=== PATIENT | male | born 1960 | race Caucasian/White ===

== ENCOUNTER 2020-11-08 21:36 | Emergency (ER) | payer MEDICAID, OTHER ==
[2020-11-08 22:57] LABS: Basophils # (auto) 0.1 10 ^3/uL (0-0.2); Basophils % (auto) 0.8 % (0.0-2.0); Eosinophils # (auto) 0.3 10 ^3/uL (0-0.8); Eosinophils % (auto) 3.6 % (0.0-7.0); Hematocrit 40.8 % (41.0-53.0); Lymphocytes # (auto) 1.9 10 ^3/uL (0.4-5.4); Lymphocytes % (auto) 21.6 % (10.0-50.0); Mean Corpuscular Hemoglobin 30.1 pg (28.0-32.0); Mean Corpuscular Hgb Conc. 34.4 g/dL (32.0-36.0); Mean Corpuscular Volume 87.6 fL (80.0-100.0); Monocytes # (auto) 0.7 10 ^3/uL (0-1.3); Monocytes % (auto) 8.1 % (0.0-12.0); Neutrophils # (auto) 5.8 10 ^3/uL (1.6-8.6); Neutrophils % (auto) 65.9 % (37.0-80.0); Platelet Count (auto) 176 10^3/uL (140-450); Red Blood Cells 4.66 10^6/uL (4.5-5.90); Red Cell Distribution Width 13.7 % (11.8-14.3); White Blood Cell 8.9 10^3/uL (4.4-10.8)
[2020-11-08 23:16] LABS: INR 1.04 (0.9-1.15); Partial Thromboplastin Time 28.4 sec (23.0-31.2)
[2020-11-08 23:18] LABS: Albumin 3.8 g/dL (3.4-5.0); Anion Gap 9 (5-15); Blood Urea Nitrogen 25 mg/dL (7-18); Calcium 8.3 mg/dL (8.5-10.1); Carbon Dioxide 24 mmol/L (21-32); Chloride 107 mmol/L (98-107); Glucose 157 mg/dL (74-106); Magnesium 2.3 mg/dL (1.6-2.6); Potassium 3.7 mmol/L (3.5-5.1); Sodium 140 mmol/L (136-145)
[2020-11-08 23:24] LABS: Alanine Aminotransferase 18 U/L (16-61); Alkaline Phosphatase 75 U/L (45-117); Aspartate Aminotransferase 7 U/L (15-37); BUN/Creatinine Ratio 23.6; Bilirubin, Total 0.4 mg/dL (0.2-1.0); GFR African American 92 mL/min; GFR Non-African American 76 mL/min; Total Protein 6.9 g/dL (6.4-8.2)
[2020-11-09 03:58] VITALS: BP 168/67
== END 2020-11-09 04:12 | disposition home or self-care (01) ==
LOC: ER 21:38
DX: J30.9 Allergic rhinitis, unspecified (principal); F17.210 Nicotine dependence, cigarettes, uncomplicated; E11.9 Type 2 diabetes mellitus without complications; I10 Essential (primary) hypertension
CPT/HCPCS: 36415; 71045; 80053; 83735; 83880; 84484; 85025; 85610; 85730; 93005

== ENCOUNTER 2022-10-25 13:24 | Inpatient (IN) | payer MEDICAID ==
[~2022-10-25] VITALS: Ht 175.3 cm; Wt 109.0 kg
[2022-10-25 13:31] VITALS: BP 145/73
[2022-10-25 14:14] LABS: Basophils # (auto) 0.1 10 ^3/uL (0-0.2); Basophils % (auto) 0.7 % (0.0-2.0); Eosinophils # (auto) 0.3 10 ^3/uL (0-0.8); Eosinophils % (auto) 4.3 % (0.0-7.0); Hematocrit 42.2 % (41.0-53.0); Hemoglobin 14.7 g/dL (13.5-17.5); Lymphocytes # (auto) 1.5 10 ^3/uL (0.4-5.4); Lymphocytes % (auto) 18.7 % (10.0-50.0); Mean Corpuscular Hemoglobin 29.2 pg (28.0-32.0); Mean Corpuscular Hgb Conc. 34.8 g/dL (32.0-36.0); Monocytes # (auto) 0.9 10 ^3/uL (0-1.3); Monocytes % (auto) 11.4 % (0.0-12.0); Neutrophils # (auto) 5.2 10 ^3/uL (1.6-8.6); Neutrophils % (auto) 64.9 % (37.0-80.0); Nucleated Red Blood Cells % 0.6 %; Red Blood Cells 5.02 10^6/uL (4.5-5.90); Red Cell Distribution Width 15.3 % (11.8-14.3)
[2022-10-25 14:37] LABS: Albumin 3.4 g/dL (3.4-5.0); Calcium 8.4 mg/dL (8.5-10.1); Magnesium 2.4 mg/dL (1.6-2.6); Potassium 4.2 mmol/L (3.5-5.1)
[2022-10-25 14:42] LABS: BUN/Creatinine Ratio 22.8; Bilirubin, Total 0.6 mg/dL (0.2-1.0); Total Protein 6.4 g/dL (6.4-8.2)
[2022-10-25] MEDS ORDERED: ASPirin 81 mg TAB PO ONE (17:15)
[2022-10-25 19:16] LABS: Urine Bacteria MOD /hpf (None Seen); Urine Blood Negative /uL (Negative); Urine Mucus FEW (None Seen); Urine Specific Gravity 1.025 (1.001-1.035); Urine WBC 42 /hpf (0 - 3)
[2022-10-25] MEDS ORDERED: MORPHINE SULFATE INJ 2 MG/ml SYRG IV PRN (20:45)
[2022-10-25] MEDS ORDERED: TEMAZEPAM 15 MG CAP PO PRN (20:45)
[2022-10-25] MEDS ORDERED: DEXTROSE (50%) 50ML SYRG IV PRN (20:45)
[2022-10-25] MEDS ORDERED: ONDANSETRON HCL 4 MG/2 ML VIAL IV PRN (20:45)
[2022-10-25] MEDS ORDERED: ACETAMINOPHEN 325 MG TAB PO PRN (20:45)
[2022-10-25] MEDS ORDERED: NITROGLYCERIN 0.4 MG SL TAB SL PRN (20:45)
[2022-10-25] MEDS ORDERED: InsuLIN REG 1unit/0.01ml Soln (100units/ml) SC SCH (22:00)
[2022-10-25] MEDS ORDERED: ACCU-CHEK COMFORT CURVE STRIP VI SCH (22:00)
[2022-10-25] MEDS ORDERED: ATORVASTATIN 20 MG TAB PO SCH (22:00)
[2022-10-26] MEDS ORDERED: cefTRIAXone 1GM/50ML D5W 50 ML IV SCH (09:00)
[2022-10-26] MEDS ORDERED: LISINOPRIL 20 MG TAB PO SCH (10:00)
[2022-10-26] MEDS ORDERED: ASPirin 81 mg TAB PO SCH (10:00)
[2022-10-26] MEDS ORDERED: ENOXAPARIN SOD 40 MG/0.4 ML SYRINGE SC SCH (10:00)
[2022-10-26] MEDS ORDERED: ATENOLOL 50 MG TAB PO SCH (10:00)
[2022-10-26] MEDS ORDERED: HCTZ 25 MG TAB PO SCH (10:00)
== END 2022-10-25 23:50 | disposition left against medical advice (07) | DRG 198 ==
LOC: ER 13:24 → TELE 20:48
PROVIDERS: ADMIT Nurse Practitioner; ATTEND Family Medicine
DX: I20.9 Angina pectoris, unspecified (principal); E11.9 Type 2 diabetes mellitus without complications; Z53.29 Procedure and treatment not carried out because of patient's decision for other reasons; F17.210 Nicotine dependence, cigarettes, uncomplicated; I10 Essential (primary) hypertension; I44.7 Left bundle-branch block, unspecified
CPT/HCPCS: 36415; 71045; 80053; 81001; 83735; 83880; 84484; 85025; 93005; G0378

== ENCOUNTER → 2022-11-25 | Outpatient (CLI) | payer MEDICAID | END | disposition home or self-care (01) | LOC: Rad HDHVI 08:03 | PROVIDERS: ATTEND Internal Medicine Cardiovascular Disease | DX: I34.0 Nonrheumatic mitral (valve) insufficiency (principal); I51.7 Cardiomegaly; R06.02 Shortness of breath; R07.89 Other chest pain | CPT/HCPCS: 93306 ==

== ENCOUNTER → 2022-11-29 | Outpatient (CLI) | payer MEDICAID ==
[~2022-11-29] VITALS: Ht 175.3 cm; Wt 104.3 kg
[~2022-11-29] MED LIST: ADENOSINE 88 MG in GIVE UN-DILUTED 0 ML IV ONE; ADENOSINE 90 MG/30 ML INJ IV ONE; ALBUTEROL SULF 2.5 MG/0.5ML(0.5%) NEB SOLN NEB ONE; ALBUTEROL SULF 2.5 MG/0.5ML(0.5%) NEB SOLN ONE
== END | disposition home or self-care (01) ==
LOC: Rad HDHVI 08:03
PROVIDERS: ATTEND Internal Medicine Cardiovascular Disease
DX: Z01.810 Encounter for preprocedural cardiovascular examination (principal); I10 Essential (primary) hypertension; E11.9 Type 2 diabetes mellitus without complications; R06.02 Shortness of breath; R07.9 Chest pain, unspecified; F17.210 Nicotine dependence, cigarettes, uncomplicated
CPT/HCPCS: 78452; 93005; 94640; 96374; 96375; A9500; J0153

== ENCOUNTER 2023-06-23 19:26 | Emergency (ER) | payer MEDICAID ==
[~2023-06-23] VITALS: Ht 177.8 cm; Wt 140.0 kg
[2023-06-23 23:30] LABS: Basophils # (auto) 0.1 10 ^3/uL (0-0.2); Basophils % (auto) 0.4 % (0.0-2.0); Eosinophils # (auto) 0.1 10 ^3/uL (0-0.8); Eosinophils % (auto) 0.7 % (0.0-7.0); Hematocrit 38.8 % (41.0-53.0); Lymphocytes # (auto) 0.9 10 ^3/uL (0.4-5.4); Lymphocytes % (auto) 7.5 % (10.0-50.0); Mean Corpuscular Hemoglobin 24.9 pg (28.0-32.0); Mean Corpuscular Hgb Conc. 28.4 g/dL (32.0-36.0); Mean Corpuscular Volume 87.7 fL (80.0-100.0); Monocytes # (auto) 0.8 10 ^3/uL (0-1.3); Neutrophils # (auto) 10.6 10 ^3/uL (1.6-8.6); Neutrophils % (auto) 85.4 % (37.0-80.0); Nucleated Red Blood Cells % 0.1 %; Red Blood Cells 4.43 10^6/uL (4.5-5.90); Red Cell Distribution Width 19.2 % (11.8-14.3); White Blood Cell 12.5 10^3/uL (4.4-10.8)
[2023-06-23 23:39] VITALS: PULSE 88; RESP 20; O2SAT 96
[2023-06-23 23:41] LABS: INR 1.06 (0.9-1.15); Partial Thromboplastin Time 21.9 SEC (24.5-34.5); Prothrombin Time 11.1 sec (9.3-11.8)
[2023-06-24] LABS: Alanine Aminotransferase 21 U/L (7-40); Albumin 4.1 g/dL (3.2-4.8); Alkaline Phosphatase 104 U/L (46-116); Anion Gap 8 (5-15); Aspartate Aminotransferase 19 U/L (13-40); BUN/Creatinine Ratio 9.2 (10.0-20.0); Blood Urea Nitrogen 11 mg/dL (9-23); Calcium 9.1 mg/dL (8.7-10.4); Carbon Dioxide 26 mmol/L (20-30); Chloride 102 mmol/L (98-107); Glucose 166 mg/dL (74-106); Potassium 4.4 mmol/L (3.5-5.1); Sodium 136 mmol/L (136-145)
[2023-06-24 00:01] LABS: Bilirubin, Total 0.7 mg/dL (0.2-1.0); Total Protein 6.6 g/dL (5.7-8.2)
[2023-06-24 00:55] VITALS: BP 135/64; PULSE 73; RESP 18; TEMP 98.8; O2SAT 100
== END 2023-06-24 01:27 | disposition short-term general hospital (02) ==
LOC: EDUNIT# 19:26 → ER 19:26 → EDBD 19:26 → ER 06-24 01:27
DX: S02.32XA Fracture of orbital floor, left side, initial encounter for closed fracture (principal); S02.40DA Maxillary fracture, left side, initial encounter for closed fracture; S09.8XXA Other specified injuries of head, initial encounter; R22.0 Localized swelling, mass and lump, head; I11.0 Hypertensive heart disease with heart failure; I50.9 Heart failure, unspecified; E11.9 Type 2 diabetes mellitus without complications; J44.9 Chronic obstructive pulmonary disease, unspecified; F17.210 Nicotine dependence, cigarettes, uncomplicated; Z98.890 Other specified postprocedural states; Y04.2XXA Assault by strike against or bumped into by another person, initial encounter; Y93.89 Activity, other specified; Y92.89 Other specified places as the place of occurrence of the external cause; Y99.8 Other external cause status
CPT/HCPCS: 36415; 70450; 70486; 71045; 72125; 80053; 85025; 85610; 85730

== ENCOUNTER 2023-07-21 11:55 | Inpatient (IN) | payer MEDICAID ==
[~2023-07-21] VITALS: Ht 177.8 cm; Wt 94.7 kg
[2023-07-21 12:15] VITALS: PULSE 67; RESP 24; O2SAT 97
[2023-07-21 12:28] LABS: Base Excess 3.6 mmol/L (-2.0-2.0)
[2023-07-21 13:07] LABS: Hemoglobin 9.7 g/dL (13.5-17.5); Lymphocytes # (auto) 1.1 10 ^3/uL (0.4-5.4); Mean Corpuscular Volume 80.8 fL (80.0-100.0); Neutrophils # (auto) 5.3 10 ^3/uL (1.6-8.6)
[2023-07-21 13:09] LABS: Basophils # (auto) 0.1 10 ^3/uL (0-0.2); Basophils % (auto) 0.7 % (0.0-2.0); Eosinophils # (auto) 0.3 10 ^3/uL (0-0.8); Eosinophils % (auto) 3.9 % (0.0-7.0); Hematocrit 30.7 % (41.0-53.0); Lymphocytes % (auto) 14.7 % (10.0-50.0); Mean Corpuscular Hemoglobin 25.5 pg (28.0-32.0); Mean Corpuscular Hgb Conc. 31.6 g/dL (32.0-36.0); Monocytes # (auto) 0.7 10 ^3/uL (0-1.3); Monocytes % (auto) 9.7 % (0.0-12.0); Nucleated Red Blood Cells % 0.1 %; Red Cell Distribution Width 19.3 % (11.8-14.3); White Blood Cell 7.4 10^3/uL (4.4-10.8)
[2023-07-21 13:25] LABS: Alanine Aminotransferase 10 U/L (7-40); Alkaline Phosphatase 74 U/L (46-116); Anion Gap 4 (5-15); Aspartate Aminotransferase 8 U/L (13-40); Blood Urea Nitrogen 10 mg/dL (9-23); Calcium 8.8 mg/dL (8.7-10.4); Carbon Dioxide 32 mmol/L (20-30); Chloride 104 mmol/L (98-107); Glucose 136 mg/dL (74-106); Lipase 29 U/L (12-53); Magnesium 1.9 mg/dL (1.6-2.6); Potassium 3.9 mmol/L (3.5-5.1); Sodium 140 mmol/L (136-145)
[2023-07-21 13:26] LABS: Bilirubin, Total 0.5 mg/dL (0.2-1.0); Total Protein 6.3 g/dL (5.7-8.2)
[2023-07-21] MEDS ORDERED: FUROSEMIDE 40 MG/4 ML VIAL IV ONE (14:15)
[2023-07-21] MEDS ORDERED: ASPirin 325 MG TAB PO ONE (14:15)
[2023-07-21 14:18] LABS: INR 1.07 (0.9-1.15); Prothrombin Time 11.2 sec (9.3-11.8)
[2023-07-21 14:27] LABS: COVID19 ANTIGEN SOFIA FIA NEGATIVE (NEGATIVE); Rapid Influenza A Negative (Negative); Rapid Influenza B Negative (Negative)
[2023-07-21] MEDS ORDERED: IOHEXOL 350 MG/ML 100ML IJ ONE (15:07)
[2023-07-21 16:53] LABS: Urine Bacteria NONE SEEN /hpf (None Seen); Urine Blood Negative /uL (Negative); Urine Clarity Clear (Clear); Urine Color Yellow (Yellow); Urine Hyaline Cast FEW /lpf (0 - 2); Urine Protein, UAD TRACE (Negative); Urine Specific Gravity 1.017 (1.001-1.035); Urine Urobilinogen Normal (Negative); Urine WBC 1 /hpf (0 - 3)
[2023-07-21 19:45] VITALS: PULSE 70; RESP 16; O2SAT 94
[2023-07-21 20:00] VITALS: PULSE 70
[2023-07-21] MEDS ORDERED: IPRATROPIUM BROM 0.5 MG/2.5ML INH SOL NEB PRN (20:15)
[2023-07-21] MEDS ORDERED: ALBUTEROL SULF 2.5 MG/0.5ML(0.5%) NEB SOLN NEB PRN (20:15)
[2023-07-21 20:22] VITALS: BP 149/57; PULSE 69; RESP 20; O2SAT 98
[2023-07-21 22:01] VITALS: O2SAT 96
[2023-07-21 22:37] VITALS: BP 141/64; PULSE 71; RESP 18; TEMP 98.3; O2SAT 99
[2023-07-21] MEDS: ATORVASTATIN 20 MG TAB PO SCH (22:37)
[2023-07-21] MEDS: METOPROLOL TARTRATE 25 MG TAB PO SCH (22:38)
[2023-07-22] VITALS (13 sets, daily range): BP systolic 115–157; BP diastolic 57–105; PULSE 67–77; RESP 12–20; TEMP 97.6–99.2; O2SAT 92–99
[2023-07-22] MEDS ORDERED: ASPI-325 PO (05:22)
[2023-07-22] MEDS ORDERED: MET50T PO (05:22)
[2023-07-22] MEDS ORDERED: METF-869 PO (05:22)
[2023-07-22] MEDS ORDERED: DULO1CAP5 PO (05:22)
[2023-07-22] MEDS ORDERED: BUPR150T18 PO (05:22)
[2023-07-22] MEDS ORDERED: ATOR-47 PO (05:22)
[2023-07-22] MEDS ORDERED: FURO40TA4 PO (05:22)
[2023-07-22 05:55] LABS: Hemoglobin 9.9 g/dL (13.5-17.5); Lymphocytes # (auto) 1.4 10 ^3/uL (0.4-5.4); Lymphocytes % (auto) 17.2 % (10.0-50.0); Monocytes # (auto) 0.8 10 ^3/uL (0-1.3); Neutrophils # (auto) 5.6 10 ^3/uL (1.6-8.6)
[2023-07-22 05:58] LABS: Basophils # (auto) 0.1 10 ^3/uL (0-0.2); Basophils % (auto) 0.8 % (0.0-2.0); Eosinophils # (auto) 0.3 10 ^3/uL (0-0.8); Eosinophils % (auto) 3.6 % (0.0-7.0); Hematocrit 31.8 % (41.0-53.0); Mean Corpuscular Hgb Conc. 31.3 g/dL (32.0-36.0); Monocytes % (auto) 9.4 % (0.0-12.0); Nucleated Red Blood Cells % 0.2 %; Red Blood Cells 3.97 10^6/uL (4.5-5.90); White Blood Cell 8.1 10^3/uL (4.4-10.8)
[2023-07-22 06:08] LABS: Albumin 3.7 g/dL (3.2-4.8); Alkaline Phosphatase 72 U/L (46-116); Anion Gap 4 (5-15); Aspartate Aminotransferase < 8 U/L (13-40); BUN/Creatinine Ratio 9.6 (10.0-20.0); Blood Urea Nitrogen 11 mg/dL (9-23); Calcium 8.6 mg/dL (8.7-10.4); Carbon Dioxide 33 mmol/L (20-30); Chloride 104 mmol/L (98-107); Glucose 126 mg/dL (74-106); Potassium 3.5 mmol/L (3.5-5.1); Sodium 141 mmol/L (136-145)
[2023-07-22] MEDS: FUROSEMIDE 40 MG/4 ML VIAL IV SCH ×2 (06:08→18:01)
[2023-07-22 06:09] LABS: Bilirubin, Total 0.4 mg/dL (0.2-1.0)
[2023-07-22 06:27] LABS: Alanine Aminotransferase 9 U/L (7-40)
[2023-07-22] MEDS: METOPROLOL TARTRATE 25 MG TAB PO SCH ×2 (09:43→21:29)
[2023-07-22] MEDS: ASPirin 81 mg TAB PO SCH (09:43)
[2023-07-22] MEDS ORDERED: MEROPENEM 1GM IVPB 100 ML IV ONE (11:30)
[2023-07-22] MEDS ORDERED: VANCOMYCIN PER PHARMACY 0 MG IV SCH (11:30)
[2023-07-22] MEDS ORDERED: VANCOMYCIN 1GM/250ML 250 ML IV ONE (12:15)
[2023-07-22] MEDS ORDERED: LIDOCAINE 2%HCL (LOCAL ANESTH.) INJ 20ML MDV ONE (13:06)
[2023-07-22] MEDS ORDERED: MEROPENEM 1GM IVPB 100 ML IV SCH (14:00)
[2023-07-22] MEDS ORDERED: MORPHINE SULFATE INJ 2 MG/ml SYRG IV PRN (15:00)
[2023-07-22] MEDS ORDERED: HYDROcodone-ACET 5/325MG TAB PO PRN (15:00)
[2023-07-22] MEDS ORDERED: ONDANSETRON HCL 4 MG/2 ML VIAL IV PRN (15:00)
[2023-07-22] MEDS ORDERED: ACETAMINOPHEN 500 MG TAB PO PRN (15:00)
[2023-07-22] MEDS ORDERED: DOCUSATE SOD 100 MG CAP PO PRN (15:00)
[2023-07-22] MEDS ORDERED: hydrALAZINE HCL 20 MG/ML VL IV PRN (15:15)
[2023-07-22 15:41] LABS: Body Fluid pH 8
[2023-07-22 18:35] LABS: Body Fluid Polymorphonuclear 6 % (0-25); Body Fluid Red Blood Cells 180 CUMM (0-2000); Body Fluid White Blood Cells 23 CUMM (0-200)
[2023-07-22] MEDS ORDERED: cefTRIAXone 1GM/50ML D5W 50 ML IV ONE (21:00)
[2023-07-22] MEDS: ATORVASTATIN 20 MG TAB PO SCH (21:29)
[2023-07-23] VITALS (8 sets, daily range): BP systolic 121–141; BP diastolic 52–66; PULSE 72–96; RESP 16–20; TEMP 98–98.5; O2SAT 90–98
[2023-07-23 06:09] LABS: Basophils # (auto) 0 10 ^3/uL (0-0.2); Basophils % (auto) 0.4 % (0.0-2.0); Lymphocytes # (auto) 1.2 10 ^3/uL (0.4-5.4); Lymphocytes % (auto) 12.2 % (10.0-50.0); Red Blood Cells 3.88 10^6/uL (4.5-5.90)
[2023-07-23 06:11] LABS: Eosinophils # (auto) 0.3 10 ^3/uL (0-0.8); Eosinophils % (auto) 2.7 % (0.0-7.0); Hematocrit 31.2 % (41.0-53.0); Hemoglobin 9.9 g/dL (13.5-17.5); Mean Corpuscular Hemoglobin 25.5 pg (28.0-32.0); Mean Corpuscular Hgb Conc. 31.7 g/dL (32.0-36.0); Mean Corpuscular Volume 80.6 fL (80.0-100.0); Monocytes # (auto) 0.9 10 ^3/uL (0-1.3); Monocytes % (auto) 8.9 % (0.0-12.0); Neutrophils # (auto) 7.5 10 ^3/uL (1.6-8.6); Neutrophils % (auto) 75.8 % (37.0-80.0); Red Cell Distribution Width 19.2 % (11.8-14.3); White Blood Cell 9.8 10^3/uL (4.4-10.8)
[2023-07-23 06:25] LABS: Chloride 100 mmol/L (98-107); Potassium 3.9 mmol/L (3.5-5.1); Sodium 140 mmol/L (136-145)
[2023-07-23 06:26] LABS: Anion Gap 8 (5-15); Calcium 9.1 mg/dL (8.5-10.1); Carbon Dioxide 32 mmol/L (20-30)
[2023-07-23 06:31] LABS: BUN/Creatinine Ratio 11.6 (10.0-20.0); Blood Urea Nitrogen 15 mg/dL (9-23); Glucose 177 mg/dL (74-106)
[2023-07-23] MEDS: FUROSEMIDE 40 MG/4 ML VIAL IV SCH ×2 (06:45→17:51)
[2023-07-23] MEDS: ASPirin 81 mg TAB PO SCH (10:10)
[2023-07-23] MEDS: METOPROLOL TARTRATE 25 MG TAB PO SCH ×2 (10:11→22:21)
[2023-07-23 13:06] LABS: Protein, Body Fluid 0.7 g/dL (.)
[2023-07-23] MEDS: ATORVASTATIN 20 MG TAB PO SCH (22:21)
[2023-07-24 05:00] VITALS: BP 115/69; PULSE 78; RESP 16; TEMP 97.3; O2SAT 91
[2023-07-24] MEDS: FUROSEMIDE 40 MG/4 ML VIAL IV SCH ×2 (06:41→17:39)
[2023-07-24] MEDS: METOPROLOL TARTRATE 25 MG TAB PO SCH ×2 (08:52→21:27)
[2023-07-24] MEDS: ASPirin 81 mg TAB PO SCH (08:52)
[2023-07-24 10:06] VITALS: BP 124/54; PULSE 71; RESP 16; TEMP 98; O2SAT 95
[2023-07-24 11:15] VITALS: O2SAT 89
[2023-07-24 17:00] VITALS: BP 113/55; PULSE 60; RESP 14; TEMP 98.2; O2SAT 95
[2023-07-24 20:00] VITALS: BP 116/56; PULSE 78; PULSE 80; RESP 18; O2SAT 96
[2023-07-24] MEDS: ATORVASTATIN 20 MG TAB PO SCH (21:28)
[2023-07-24 23:21] VITALS: BP 116/56; PULSE 80; RESP 20; TEMP 98; O2SAT 96
[2023-07-25 01:40] VITALS: O2SAT 96
[2023-07-25 04:37] VITALS: BP 143/68; PULSE 75; RESP 16; TEMP 97.9; O2SAT 97
[2023-07-25] MEDS: FUROSEMIDE 40 MG/4 ML VIAL IV SCH (06:38)
[2023-07-25 08:00] VITALS: BP 137/66; PULSE 80; PULSE 85; RESP 18; TEMP 98.8; O2SAT 93
[2023-07-25 08:50] VITALS: BP 137/66; PULSE 80; RESP 18; TEMP 98.8; O2SAT 93
[2023-07-25] MEDS: METOPROLOL TARTRATE 25 MG TAB PO SCH (09:28)
[2023-07-25] MEDS: ASPirin 81 mg TAB PO SCH (09:28)
[2023-07-25 09:38] VITALS: O2SAT 93
[2023-07-25 12:40] VITALS: BP 126/59; PULSE 69; RESP 18; TEMP 98; O2SAT 94
== END 2023-07-25 14:42 | disposition home or self-care (01) | DRG 133 ==
LOC: ER 11:55 → EDBD 11:55 → TELE 19:31 → TELE-WESTW 22:10
PROVIDERS: ADMIT Nurse Practitioner Family; ATTEND Nurse Practitioner Acute Care
PROC: 0W9B3ZZ Drainage of Left Pleural Cavity, Percutaneous Approach (ICD-10-PCS; principal; 2023-07-22)
DX: J96.01 Acute respiratory failure with hypoxia (principal); J86.9 Pyothorax without fistula; E87.3 Alkalosis; J91.8 Pleural effusion in other conditions classified elsewhere; I50.42 Chronic combined systolic (congestive) and diastolic (congestive) heart failure; D64.9 Anemia, unspecified; E11.9 Type 2 diabetes mellitus without complications; I11.0 Hypertensive heart disease with heart failure; E78.5 Hyperlipidemia, unspecified; E87.6 Hypokalemia; Z20.822 Contact with and (suspected) exposure to COVID-19; I25.10 Atherosclerotic heart disease of native coronary artery without angina pectoris; Z95.1 Presence of aortocoronary bypass graft
CPT/HCPCS: 36415; 36600; 71045; 71275; 76604; 76942; 80048; 80053; 81001; 82805; 83690; 83735; 83880; 83986; 84484; 85025; 85379; 85610; 87070; 87205; 87426; 87804; 89051; 99152; 99291; C1729; G0378; J0696; J2185

== ENCOUNTER 2024-11-11 17:45 | Emergency (ER) | payer MEDICAID ==
[~2024-11-11] VITALS: Ht 182.9 cm; Wt 81.0 kg
[~2024-11-11 17:45] MED LIST changes: -ADENOSINE 88 MG in GIVE UN-DILUTED 0 ML IV ONE; -ADENOSINE 90 MG/30 ML INJ IV ONE; -ALBUTEROL SULF 2.5 MG/0.5ML(0.5%) NEB SOLN NEB ONE; -ALBUTEROL SULF 2.5 MG/0.5ML(0.5%) NEB SOLN ONE; +ASPI-325 PO; +ATOR-47 PO; +BUPR150T18 PO; +DULO1CAP5 PO; +FURO40TA4 PO; +MET50T PO; +METF-869 PO
[2024-11-11 19:36] LABS: Basophils # (auto) 0 10 ^3/uL (0-0.2); Basophils % (auto) 0.5 % (0.0-2.0); Eosinophils # (auto) 0.2 10 ^3/uL (0-0.8); Eosinophils % (auto) 1.6 % (0.0-7.0); Hematocrit 38.4 % (41.0-53.0); Hemoglobin 12.4 g/dL (13.5-17.5); Lymphocytes # (auto) 0.9 10 ^3/uL (0.4-5.4); Lymphocytes % (auto) 9.7 % (10.0-50.0); Mean Corpuscular Hemoglobin 26.4 pg (28.0-32.0); Mean Corpuscular Hgb Conc. 32.3 g/dL (32.0-36.0); Mean Corpuscular Volume 81.8 fL (80.0-100.0); Monocytes # (auto) 1.1 10 ^3/uL (0-1.3); Monocytes % (auto) 11.7 % (0.0-12.0); Neutrophils # (auto) 7.2 10 ^3/uL (1.6-8.6); Neutrophils % (auto) 76.5 % (37.0-80.0); Platelet Count (auto) 274 10^3/uL (140-450); Red Blood Cells 4.69 10^6/uL (4.5-5.90); Red Cell Distribution Width 16.6 % (11.8-14.3); White Blood Cell 9.3 10^3/uL (4.4-10.8)
[2024-11-11 19:45] LABS: Chloride 102 mmol/L (98-107); Potassium 4.1 mmol/L (3.5-5.1); Sodium 141 mmol/L (136-145)
[2024-11-11 19:46] LABS: Anion Gap 8 (5-15)
[2024-11-11 19:47] LABS: Calcium 9.4 mg/dL (8.7-10.4)
[2024-11-11 19:51] LABS: BUN/Creatinine Ratio 22.8 (10.0-20.0)
[2024-11-11 19:56] LABS: Blood Urea Nitrogen 29 mg/dL (9-23); Carbon Dioxide 31 mmol/L (20-31); Glucose 121 mg/dL (74-106)
--- NOTE | 2024-11-11 20:08 | DVH ---
EXAM: XY CHEST PORTABLE TECHNIQUE: Single frontal chest radiograph CLINICAL HISTORY: sob COMPARISON: XY CHEST PORTABLE on DOS: 07/23/23, XY CHEST PORTABLE on DOS: 07/22/23, XY CHEST XRAY 1 VIE W on DOS: 07/21/23 Findings/Impression: Frontal chest radiograph demonstrates no acute osseous or superficial soft tissue abnormalities. The trachea is midline. Cardiomegaly with pulmonary vascular congestion. Small left pleural effusion with compressive atelectasis. A superimposed infectious process is not ex cluded. No pneumothorax.
--- NOTE | 2024-11-11 21:06 | ED.PDOC ---
History of Present Illness HPI Comments 64 y/o obese M presents with c/o shortness of breath and cough for the past 3x days, today. Patient is a poor historian and reports ongoing symptoms that have been progressively worsening since initial unprovoked onset. He denies any fever, chills, palpitations, dyspnea, or other associated symptoms or modifiers at this time. Chief Complaint: Shortness of Breath Time Seen by MD: 18:35 Primary Care Provider: UNKNOWN Reviewed Notes: Nurses Notes, Medications, Allergies Allergies: Coded Allergies: NO KNOWN ALLERGIES (Unverified , 11/08/20) Home Meds Reported Medications Duloxetine HCl (Duloxetine HCl) 30 Mg Cap, 1 CAP PO BID for depressive disorder 07/22/23 Aspirin (Aspirin Low Dose) 81 Mg Tab, 1 TAB PO DAILY 07/22/23 Bupropion Hcl (Bupropion Hcl Xl) 150 Mg Tab, 1 TAB PO DAILY 07/22/23 Atorvastatin Calcium (ATORVASTATIN CALCIUM) 80 Mg Tab, 1 TAB PO DAILY 07/22/23 Metformin Hydrochloride (Metformin Hydrochloride) 500 Mg Tab, 1 TAB PO DAILY 07/22/23 Metoprolol Tartrate (LOPRESSOR TABLET) 50 Mg Tb, 1 TAB PO BID 07/22/23 Furosemide (Furosemide) 40 Mg Tab, 1 TAB PO TID 07/22/23 Information Source: Patient, Emergency Med Personnel Mode of Arrival: EMS Past Medical History PAST MEDICAL HISTORY: CAD, CHF, COPD, DM, HTN Past Medical History (Other): acute hypoxic respiratory failiure, left pleural effusions Surgical History: CABG Family History Family History: Unknown Social History Smoker: Non-Smoker, Quit Less Than 1 Year, Cigarettes Alcohol: Occasionally Drugs: Denies Drug Use Lives In: Home All Other Systems: Reviewed and Negative (Comprehensive systems review obtained and negative except for what is stated in the HPI.) Physical Exam General Appearance: No Apparent Distress, Normal HEENT: Normal ENT Inspection, Pharynx Normal, TMs Normal Neck: Full Range of Motion, Non-Tender, Normal, Normal Inspection Respiratory: Chest Non-Tender, Lungs Clear, No Accessory Muscle Use, No Respiratory Distress, Normal Breath Sounds Cardiovascular: No Edema, No JVD, No Murmur, No Gallop, Normal Peripheral Pulses, Regular Rate/Rhythm Breast Exam: Deferred Gastrointestinal: No Organomegaly, Non Tender, No Pulsatile Mass, Normal Bowel Sounds, Soft Genitalia: Deferred Pelvic: Deferred Rectal: Deferred Extremities: No calf tenderness, Normal capillary refill, Normal inspection, Normal range of motion, Non-tender, No pedal edema Musculoskeletal : Apperance: Normal Neurologic: Alert, bulb brander II-XII nml as Tested, No Motor Deficits, Normal Affect, Normal Mood, No Sensory Deficits Cerebellar Function: Normal Reflexes: Normal Skin: Dry, Normal Color, Warm Lymphatic: No Adenopathy Was a procedure done? Was a procedure done?: No EKG EKG : Pulse Rate (adult): 97 [place]: Normal Cardiac Rhythm: NSR Block: None Hypertrophy: None ST: Normal Differential Dx Considerations may include: viral syndrome, URI, PNA, PE, MT, among others bronchitis, chf, copd X-Ray, Labs, Meds, VS Vital Signs Date Time Temp Pulse Resp B/P (MAP) Pulse Ox O2 Delivery O2 Flow Rate FiO2 11/11/24 21:06 97 11/11/24 18:09 97 Nasal Cannula* 2 28 11/11/24 18:03 98.7 96 20 138/82 (100) 95 98.7 11/11/24 17:50 97 Lab Test 11/11/24 22:05 11/11/24 20:19 11/11/24 19:02 Range/Units Troponin I High Sensitivity 39 40 39 </=54 ng/L White Blood Count 9.3 4.4-10.8 10^3/uL Red Blood Count 4.69 4.5-5.90 10^6/uL Hemoglobin 12.4 L 13.5-17.5 g/dL Hematocrit 38.4 L 41.0-53.0 % Mean Corpuscular Volume 81.8 80.0-100.0 fL Mean Corpuscular Hemoglobin 26.4 L 28.0-32.0 pg Mean Corpuscular Hemoglobin Concent 32.3 32.0-36.0 g/dL Red Cell Distribution Width 16.6 H 11.8-14.3 % Platelet Count 274 140-450 10^3/uL Mean Platelet Volume 8.8 6.9-10.8 fL Neutrophils (%) (Auto) 76.5 37.0-80.0 % Lymphocytes (%) (Auto) 9.7 L 10.0-50.0 % Monocytes (%) (Auto) 11.7 0.0-12.0 % Eosinophils (%) (Auto) 1.6 0.0-7.0 % Basophils (%) (Auto) 0.5 0.0-2.0 % Neutrophils # (Auto) 7.2 1.6-8.6 10 ^3/uL Lymphocytes # (Auto) 0.9 0.4-5.4 10 ^3/uL Monocytes # (Auto) 1.1 0-1.3 10 ^3/uL Eosinophils # (Auto) 0.2 0-0.8 10 ^3/uL Basophils # (Auto) 0 0-0.2 10 ^3/uL Nucleated Red Blood Cells 0.0 % Sodium Level 141 136-145 mmol/L Potassium Level 4.1 3.5-5.1 mmol/L Chloride Level 102 98-107 mmol/L Carbon Dioxide Level 31 20-31 mmol/L Anion Gap 8 5-15 Blood Urea Nitrogen 29 H 9-23 mg/dL Creatinine 1.27 0.700-1.30 mg/dL Glomerular Filtration Rate Calc 63 >90 mL/min BUN/Creatinine Ratio 22.8 H 10.0-20.0 Serum Glucose 121 H 74-106 mg/dL Calcium Level 9.4 8.7-10.4 mg/dL [place] [id number] Ph: [phone] DIAGNOSTIC IMAGING Diagnostic Imaging Report : [id number] Signed PATIENT: KANDI BA ACCT: [id number] UNIT: [id number] : 1960 LOC: ER ROOM / BED: / AGE / SEX: 64 / M ADM STATUS: REG ER SERVICE 36 ORDERING PHYSICIAN: MICKEY GALLEGO MD PROCEDURE(s): CXRP - CHEST PORTABLE REASON: sob ORDER NUMBER(s): [id number], ACCESSION NUMBER(s): [id number] EXAM: XY CHEST PORTABLE TECHNIQUE: Single frontal chest radiograph CLINICAL HISTORY: sob COMPARISON: XY CHEST PORTABLE on DOS: 07/23/23, XY CHEST PORTABLE on DOS: 07/22/23, XY CHEST XRAY 1 VIEW on DOS: 07/21/23 Findings/Impression: Frontal chest radiograph demonstrates no acute osseous or superficial soft tissue abnormalities. The trachea is midline. Cardiomegaly with pulmonary vascular congestion. Small left pleural effusion with compressive atelectasis. A superimposed infectious process is not excluded. No pneumothorax. ATED BY: DEANNA QUIROGA DO DICTATED DATE/TIME: 11/11/242004 SIGNED BY: DEANNA QUIROGA DO SIGNED DATE/TIME: 11/11/242004 CC: Time of 1ST Reevaluation: 19:05 Reevaluation 1ST: Unchanged Time of 2ND Reevaluation: 22:58 Reevaluation 2ND: Improved Patient Education/Counseling: Diagnosis, Treatment, Prognosis, Need For Follow Up Family Education/Counseling: No Family Present Additional Information Previous visit documents reviewed: July 21, 2023 encounter for pleural effusions, left The following tests were ordered, and results were reviewed by me: troponin, CXR, EKG, BMP, CBC Additional Information was gathered from interviewing the following independent historians: EMS I reviewed and agreed with the following test results read by other providers: CXR I discussed treatment and results with medical personnel and: Patient Departure 1 Departure Time of Disposition: 22:58 Impression: Primary Impression: Bronchitis Disposition: 01 HOME / SELF CARE / HOMELESS Condition: Good e-Prescriptions Albuterol Sulfate (Proair Respiclick) 108 Mcg/Act Aer 108 MCG IN Q4HP PRN, #1 AER Prov: MICKEY GALLEGO MD 11/11/24 Azithromycin (Zithromax Z-Juanito) 250 Mg Tab 250 MG PO DAILY for 5 Days, #5 TAB Prov: MICKEY GALLEGO MD 11/11/24 Discharged With: Self Critical Care Note Critical Care Time?: No Stability Stability form required: No Heart Score Heart Score: Heart Score Response (Comments) Value History Slightly Suspicious 0 EKG Normal 0 Age 45-64 1 Risk Factors >3 or Hx ASHD 2 Troponin Normal limit 0 Total 3 I personally scribed for MICKEY GALLEGO MD ([email or web address]) on 11/11/24 at 21:06. Electronically submitted by Johnny Trevino [email or web address]). MICKEY GALLEGO MD Nov 11, 2024 21:06
[2024-11-11] MEDS ORDERED: AZITTAB PO (22:59)
[2024-11-11] MEDS ORDERED: ALBU1AER4 IN (22:59)
[2024-11-11 23:00] VITALS: BP 137/89; TEMP 98.3
[2024-11-11 23:20] VITALS: PULSE 79; RESP 19; O2SAT 91
--- NOTE | 2024-11-13 07:14 | ECG ---
[facility] Test Date: 2024-11-11 Test Time: 17:50:40 Pat Name: KANDI BA Department: ED Room: Gender: M [employer] Processor: CLARITZA : 1960 Requested By: VLDAIMIR JENKINS Order Number: [id number] Reading MD: Carloz Gregg Measurements Intervals [place] Rate: 97 P: 95 NE: 178 QRS: 68 QRSD: 115 T: 253 QT: 351 QTc: 446 Interpretive Statements Sinus rhythm Nonspecific intraventricular conduction delay Nonspecific repol abnormality, diffuse leads Electronically Signed On 11-14-2024 22:03:42 PDT by Carloz Gregg Please click the below link to view image of tracing.
== END 2024-11-11 23:22 | disposition home or self-care (01) ==
LOC: ER 17:45 → EDBD 17:45 → ER 23:18
DX: J40 Bronchitis, not specified as acute or chronic (principal); I11.0 Hypertensive heart disease with heart failure; I50.9 Heart failure, unspecified; E11.9 Type 2 diabetes mellitus without complications; I25.10 Atherosclerotic heart disease of native coronary artery without angina pectoris; J44.9 Chronic obstructive pulmonary disease, unspecified; Z95.1 Presence of aortocoronary bypass graft; Z79.82 Long term (current) use of aspirin; Z79.899 Other long term (current) drug therapy
CPT/HCPCS: 36415; 71045; 80048; 84484; 85025; 93005